=== PATIENT | male | born 1995 | race Two or more races ===

== ENCOUNTER 2018-07-03 23:54 | Emergency (ER) | payer OTHER ==
[~2018-07-03] VITALS: Ht 180.3 cm; Wt 86.2 kg
[2018-07-04] VITALS: BP 131/82
[2018-07-04] MEDS ORDERED: Bactrim-DS 1 tab ORAL ONE (00:15)
[2018-07-04] MEDS ORDERED: LET 3ml Soln TOPIC ONE (00:15)
[2018-07-04] MEDS ORDERED: Lidocaine 1% 10mg/ml/Epi 0.005mg/ml 30ml vial INJ ONE (00:15)
[2018-07-04] MEDS ORDERED: oxyCODONE HCL/Acetaminophen 5/325mg ORAL ONE (00:15)
--- NOTE | 2018-07-04 01:24 | Emergency Room Report ---
History of Present Illness General Chief Complaint: Pain Source: Patient Present Illness HPI Patient presents with several days of swelling and increased pain R top of shoulder. There is some redness. No fevers. Treating with topical benadryl without help. Pain rated 6/10, not radiate to neck. Denies diabetes, cough, NVD. Anxious about how it will be treated. Tetanus UTD. Allergies: Coded Allergies: Dairy (Verified Allergy, Mild, cough, 07/04/18) Patient History Past Medical History: see triage record Social History: Reports: smoking Social History Narrative with girlfriend Reviewed Nursing Documentation: PMH: Agreed; PSxH: Agreed Nursing Documentation-PMH Past Medical History: No Stated History Review of Systems Constitutional: Reports: see HPI Cardiovascular: Denies: chest pain Gastrointestinal: Denies: abdominal pain Skin: Reports: see HPI Psychiatric: Reports: see HPI Neurological: Denies: numbness Hematologic/Lymphatic: Denies: easy bruising Physical Exam Vital Signs Date Time Temp Pulse Resp B/P (MAP) Pulse Ox O2 Delivery O2 Flow Rate FiO2 07/03/18 23:57 98.3 113 18 131/82 95 Room Air 98.2 Sp02 EP Interpretation: reviewed, normal General Appearance: well appearing, no apparent distress Head: normocephalic, atraumatic Eyes: bilateral eye normal inspection ENT: hearing grossly normal, normal voice, moist mucus membranes Neck: full range of motion, supple Respiratory: no respiratory distress, speaking full sentences Cardiovascular #2: 2+ radial (L) Gastrointestinal: normal inspection Musculoskeletal: gait/station normal, normal range of motion Neurologic: alert, normal gait, grossly normal Psychiatric: anxious Skin: other - erythema with fluctuance L shoulder Procedures Incision and Drainage Incision and Drainage : Consent: Verbal Blade Size: 11 I & D Procedure: betadine prep, sterile drapes applied, sterile dressing applied, gauze wick placed Wound Location: other - L shoulder Wound's Depth, Shape: superficial Wound Explored: contaminated - pus expressed and irrigated Anesthesia: Lidocaine w/ Epi Patient Tolerated: Well Complications: None Medical Decision Making Diagnostic Impression: Primary Impression: Abscess of left shoulder ER Course Patient with infection and pain L shoulder. Exam c/w abscess. Needs PO antibiotics and also I and D. Pretreated for pain. Not toxic and no labs indicated. See procedure notes. Tolerated well. Patient stable for outpatient observation and treatment. Advised to return for drain replacement. Last Vital Signs Date Time Temp Pulse Resp B/P (MAP) Pulse Ox O2 Delivery O2 Flow Rate FiO2 07/04/18 01:45 98.3 74 18 131/82 95 Room Air 208.9 Status: improved Disposition: HOME, SELF-CARE Condition: Improved Scripts Trimethoprim/Sulfamethoxazole 160/800* (BACTRIM DS TABLET*) 1 Each Tablet 1 TAB ORAL Q12H, #14 TAB 0 Refills Prov: Kev Verdin M.D. 07/04/18 Tramadol Hcl* (ULTRAM*) 50 Mg Tablet 50 MG ORAL Q6H PRN for For Pain, #8 TAB 0 Refills Prov: Kev Verdin M.D. 07/04/18 Ibuprofen* (MOTRIN*) 600 Mg Tablet 600 MG ORAL Q6H PRN for For Pain, #16 TAB Prov: Kev Verdin M.D. 07/04/18 Referrals: [facility]ERR[facility] (PCP) Kev Verdin M.D. Jul 04, 2018 01:24
[2018-07-04] MEDS ORDERED: TRAMADOL HCL50 MG ORAL (01:26)
[2018-07-04] MEDS ORDERED: BACTRIM DS TAB1 EAC1 ORAL (01:26)
[2018-07-04] MEDS ORDERED: IBUPROFEN600 MG ORAL (01:26)
[2018-07-04 01:44] VITALS: BP 127/78
[2018-07-04 01:45] VITALS: BP 131/82
== END 2018-07-04 01:50 | disposition home or self-care (01) ==
LOC: EMR 07-04 00:36
DX: L02.414 Cutaneous abscess of left upper limb (principal)
CPT/HCPCS: 99283

== ENCOUNTER 2018-07-06 16:28 | Emergency (ER) | payer OTHER ==
[~2018-07-06] VITALS: Ht 180.3 cm; Wt 86.2 kg
[~2018-07-06 16:28] MED LIST: BACTRIM DS TAB1 EAC1 ORAL; IBUPROFEN600 MG ORAL; TRAMADOL HCL50 MG ORAL
[2018-07-06] MEDS ORDERED: NKM (16:35)
[2018-07-06 16:39] VITALS: BP 126/75
--- NOTE | 2018-07-06 16:53 | Emergency Room Report ---
History of Present Illness General Chief Complaint: Wound Recheck/Suture Removal Source: Patient Present Illness HPI Pt. presents to the ED c/o improving erythema and swelling of left shoulder s/p incision 3 days ago with packing placed. denies fevers or chills. reports he has been taking his abx as rx'd. denies worsening or new symptoms. denies pain, reports 1/10 in severity soreness only with palpation. Allergies: Coded Allergies: Dairy (Verified Allergy, Mild, cough, 07/04/18) Patient History Past Medical History: see triage record Past Surgical History: none Pertinent Family History: none Reviewed Nursing Documentation: PMH: Agreed; PSxH: Agreed Nursing Documentation-PMH Past Medical History: No Stated History Review of Systems All Other Systems: negative except mentioned in HPI Physical Exam Vital Signs Date Time Temp Pulse Resp B/P (MAP) Pulse Ox O2 Delivery O2 Flow Rate FiO2 07/06/18 16:32 98.2 87 18 126/75 96 Room Air 98.2 Sp02 EP Interpretation: reviewed, normal General Appearance: no apparent distress, alert, GCS 15, non-toxic Head: normocephalic, atraumatic Eyes: bilateral eye PERRL, bilateral eye fluoroscene uptake ENT: hearing grossly normal, normal voice Neck: full range of motion Respiratory: lungs clear, normal breath sounds, speaking full sentences Cardiovascular #1: regular rate, rhythm Musculoskeletal: back normal, gait/station normal, normal range of motion, non- tender Neurologic: alert, oriented x3, responsive, motor strength/tone normal, sensory intact, speech normal, grossly normal Psychiatric: judgement/insight normal Skin: no rash, warm/dry, well hydrated, wd healing/no infection noted - left shoulder. some mild erythema, wound packing noted Lymphatic: no adenopathy Medical Decision Making PA Attestation Dr. Brandt is my supervising Physician whom patient management has been discussed with. Diagnostic Impression: Primary Impression: Change or removal of wound packing ER Course Pt. presents to the ED c/o improving erythema and swelling of left shoulder s/p incision 3 days ago with packing placed. denies fevers or chills. reports he has been taking his abx as rx'd. denies worsening or new symptoms. denies pain, reports 1/10 in severity soreness only with palpation. Ddx considered but are not limited to cellulitis, abscess, cystic acne, necrotizing fasciitis, insect bite. Vital signs: are WNL, pt. is afebrile H&PE are most consistent with healing previously incised abscess of the left shoulder ORDERS: none required at this time, the diagnosis is clinical ED INTERVENTIONS: -wound packing removed. -Sterile dressing applied. d/w pt. to continue taking po abx and to look for signs of infection . DISCHARGE: At this time pt. is stable for d/c to home. Will provide printed patient care instructions, and any necessary prescriptions. Care plan and follow up instructions have been discussed with the patient prior to discharge. Last Vital Signs Date Time Temp Pulse Resp B/P (MAP) Pulse Ox O2 Delivery O2 Flow Rate FiO2 07/06/18 16:39 98.2 87 18 126/75 96 Room Air 98.2 Disposition: HOME, SELF-CARE Condition: Stable Patient Instructions: Wound Packing Additional Instructions: Take medications as directed. Follow up with a Primary Care Provider in 3-5 days, even if your symptoms have resolved. --Please review list of primary care clinics, if you do not already have a primary care provider Return sooner to ED if new symptoms occur, or current symptoms become worse. - Please note that this Emergency Department Report was dictated using [employer] advisor technology software, occasionally this can lead to erroneous entry secondary to interpretation by the dictation equipment. Daniella Griffin Jul 06, 2018 16:53
[2018-07-06 17:02] VITALS: BP 126/75
== END 2018-07-06 17:02 | disposition home or self-care (01) ==
LOC: EMR 16:40
DX: Z48.01 Encounter for change or removal of surgical wound dressing (principal)
CPT/HCPCS: 99282